=== PATIENT | male | born 1975 | race Two or more races ===

== ENCOUNTER 2022-05-06 12:47 | Emergency (ER) | payer OTHER ==
--- NOTE | 2022-05-06 14:14 | XRAY Report ---
PROCEDURE: Finger(s) LT INDICATIONS: Trauma. Sawinjury to thumb TECHNIQUE: AP hand, 2 views of the left thumb s) acquired. COMPARISON: None FINDINGS: Bones: Incomplete fracture of the distal shaft of the proximal phalanx of the thumb with associated p ulverized bone. No dislocation. No suspicious bony lesions. Soft tissues: No suspicious soft tissue calcifications. IMPRESSION: Incomplete fracture of the distal shaft of the proximal phalanx of the thumb. Reviewed by: Phan Herzog MD on 05/06/2022 2:13 PM PST Approved by: Phan Herzog MD on 05/06/2022 2:13 PM PST Station ID: [id number]
[2022-05-06] MEDS ORDERED: BUPIVACAINE 0.5% PF 10 ML VIAL SUBQ STA (15:46)
[2022-05-06] MEDS ORDERED: TETANUS/DIPHTHERIA/PERTUSSIS 0.5 ML SYRINGE IM ONE (16:03)
--- NOTE | 2022-05-06 16:07 | ED Physician Documentation ---
History of Present Illness - Stated complaint Stated Complaint: LT HAND LAC - Chief complaint Chief Complaint: Laceration - History obtained from History obtained from: Patient - History of Present Illness Timing: Today Pain level max: 6 Pain level now: 4 - Additonal information Additional information: Patient is a 46-year-old male, right-handed who presents to the emergency department with a left thumb laceration from a saw. He states he was cutting a board in half when the saw had a nail, bounced back and cut his left thumb. Unable to straighten the thumb. States the thumb feels numb as well. Worse with movement, better with rest. Unknown last tetanus. Patient is right- handed. Patient lives in [place]. Review of Systems Constitutional: denies: Fever, Chills Respiratory: denies: Cough GI: denies: Vomiting, Diarrhea Skin: denies: Rash Musculoskeletal: denies: Neck pain, Back pain Neurologic: denies: Headache PD PAST MEDICAL HISTORY - Past Medical History Past Medical History: No - Past Surgical History Past Surgical History: No - Present Medications Home Medications: Ambulatory Orders Medication Instructions Recorded Confirmed Oxycodone HCl/Acetaminophen 1 - 2 each PO Q6H PRN #14 tablet 05/06/22 [Percocet 5-325 mg Tablet] MDD 6 tabs cephALEXin [Keflex] 500 mg PO Q6H #40 cap 05/06/22 - Allergies Allergies/Adverse Reactions: Allergies Allergy/AdvReac Type Severity Reaction Status Date / Time No Known Drug Allergies Allergy Verified 05/06/22 13:02 - Living Situation Living Situation: reports: With family Living Arrangement: reports: At home - Family History Family history: reports: Non contributory - Immunizations Immunizations are current?: No Immunizations: TDAP >10years/unknown PD ED PE NORMAL - Vitals Vital signs reviewed: Yes - General General: Alert and oriented X 3, No acute distress - HEENT HEENT: Moist mucous membranes - Neck Neck: Supple, no meningeal sign - Derm Derm: Warm and dry - Extremities Extremities: Other (L hand - 3cm curved laceration to the dorsum of the thumb. decreased sensation over the tip of the digit. brisk cap refill. Unable to straighten the thumb. ) - Neuro Neuro: Alert and oriented X 3 - Psych Psych: Normal mood, Normal affect Results - Vitals Vitals: Vital Signs - 24 hr 05/06/22 05/06/22 12:59 19:07 Temperature 37.8 C Heart Rate 68 71 Respiratory 18 Rate Blood Pressure 153/88 H 126/90 H O2 Saturation 98 99 Oxygen O2 Source Room air - Rads (name of study) L hand xray Radiology: Final report received, See rad report Procedures - Laceration (location) L thumb Length in cm: 3 Wound type: Curved Neurovascular status: Sensory intact, Vascular intact Tendon involvement: Tendon Injury (lacerated extensor tendon) Anesthesia: Marcaine 0.5% Wound preparation: Irrigated copiously NS, Wound explored, To the base Skin layer closure: Interrupted, Size #-0 - enter number (4) Other: Patient tolerated well, No complications, Neurovascular intact, Dressing applied, Tetanus booster given PD MEDICAL DECISION MAKING - ED course Complexity details: reviewed results, re-evaluated patient, considered differential, d/w patient, d/w consumer services consultant (Dr. Edward hand surgery, [facility]) ED course: Patient is a 46-year-old male with a left thumb injury. He appears to have lacerated the extensor tendon. The injury did go partially through the bone. He was started on antibiotics, pain medication. The laceration was repaired, placed in extension splint. I initially attempted to contact [facility] in [place], but they state they no longer have hand surgery and recommend referral to [facility]. Discussed the case with [facility], they recommend follow-up in clinic. They state they will call the patient in 1 to 2 days. They think you will be able to be seen on Friday. Patient counseled regarding the need for follow-up this week. He was also given [facility]'s number in case he does not hear from them. The hand consumer services consultant had not called back when the patient had to leave the emergency department so we did call him and relayed the above information to him on his cell phone. Tdap given. Patient counseled regarding wound care and signs of infection. Patient counseled regarding signs and symptoms for which I believe and urgent re-ev aluation would be necessary. Patient with good understanding of and agreement to plan and is comfortable going home at this time This document was made in part using voice recognition software. While efforts are made to proofread this document, sound alike and grammatical errors may occur. Incomplete fracture of the distal shaft of the proximal phalanx of the thumb. Departure - Departure Disposition: 01 Home, Self Care Clinical Impression: Tendon laceration Thumb laceration Qualifiers: Encounter type: initial encounter Damage to nail status: without damage Foreign body presence: without foreign body Laterality: left Qualified Code(s): S61.012A - Laceration without foreign body of left thumb without damage to nail, initial encounter Thumb fracture Qualifiers: Encounter type: initial encounter Fracture type: open Phalanx: proximal Fracture alignment: nondisplaced Laterality: left Qualified Code(s): S62.515B - Nondisplaced fracture of proximal phalanx of left thumb, initial encounter for open fracture Condition: Good Instructions: ED Fx Thumb, ED Laceration Tendon Follow-Up: [facility] [Provider Group] - Within 1 week Prescriptions: cephALEXin [Keflex] 500 mg PO Q6H #40 cap Oxycodone HCl/Acetaminophen [Percocet 5-325 mg Tablet] 1 - 2 each PO Q6H PRN #14 tablet MDD 6 tabs PRN Reason: pain Comments: You will need to follow up with a hand surgeon at [facility] as your tendon is lacerated. Your skin was closed today. We will place you on antibiotics and pain medications. Please return to your closest ER if you notice redness, swelling, or increasing pain. [facility] [phone] . Call for an appointment. You have chosen to leave tonight before the hand surgeon called back. Your prescriptions were sent to [facility] in [place] I am prescribing a short course of narcotic pain medication for you. These are potentially dangerous and addictive medications that should be used carefully. These medications may constipate you. Take an cxwj-lca-fcybmot stool softener (docusate) twice daily with plenty of water while taking these medications. If you go 24 hours without a bowel movement, take [id number] miralax, per package instructions. Do not drink or drive while taking these medications. If you received narcotic or sedating medications while in the emergency department, do not drive for 24 hours. Store this medication in a safe, secure place and out of reach of children. It is a violation of federal law to give or sell this medication to another person or to use in a manner other than prescribed. The ED will not refill narcotic prescriptions, including prescriptions lost or stolen. To dispose of unwanted medications: 1. [facility] at [address] in [place] has a medication drop box. They accept prescription medications (in pill form) Friday through Friday 9:00 a.m. to 5:00 p.m. 2. [facility] accepts prescription medications (in pill form only) for disposal year round. Call for more information. 3. Contact the [facility] for the next [facility] sponsored prescription drug collection event. , [phone], or [phone]; Discharge Date/Time: 05/06/22 19:07
[2022-05-06] MEDS ORDERED: BACITRACIN ZINC OINT 1 PACKET TOP STA (16:28)
[2022-05-06] MEDS ORDERED: cephALEXin 250 MG CAPSULE PO STA (16:28)
[2022-05-06] MEDS ORDERED: ONDANSETRON ODT 4 MG TABLET TL STA (18:32)
[2022-05-06] MEDS ORDERED: oxyCODONE 5 MG TABLET PO STA (18:32)
[2022-05-06 19:08] VITALS: BP 126/90
== END 2022-05-06 19:07 | disposition home or self-care (01) ==
LOC: ED 12:47
DX: S62.515B Nondisplaced fracture of proximal phalanx of left thumb, initial encounter for open fracture (principal); S56.322A Laceration of extensor or abductor muscles, fascia and tendons of left thumb at forearm level, initial encounter; W27.0XXA Contact with workbench tool, initial encounter
CPT/HCPCS: 12002; 73140; 90715; 99283; 99284; A9270; Q0162